=== PATIENT | female | born 1955 | race African-American/Black ===

== ENCOUNTER 2017-04-19 06:42 | Day surgery (SDC) | payer OTHER ==
[2017-04-08 16:50] VITALS: BMI 30.2
[2017-04-19] MEDS ORDERED: LIDOCAINE HCL 1%, 10 MG/ML (20ML VIAL) ONE (07:19)
[2017-04-19] MEDS ORDERED: DESFLURANE GAS 240 ML BOTTLE IH ONE (07:19)
[2017-04-19] MEDS ORDERED: SEVOFLURANE 250 ML BTL ONE (07:19)
[2017-04-19] MEDS ORDERED: LIDOCAINE HCL 2% (20ML MULTI-DOSE VIAL) NR ONE (07:29)
[2017-04-19] MEDS ORDERED: BUPIVACAINE HCL/PF 0.5% (5MG/ML) 10 ML VIAL ONE (07:29)
[2017-04-19] MEDS ORDERED: LIDOCAINE 1%/EPI 1:100000 (20 ML MULTI DOSE VIAL) ONE (07:29)
[2017-04-19] MEDS ORDERED: TRIAMCINOLONE ACET 40MG/1ML VIAL ONE (07:29)
[2017-04-19] MEDS ORDERED: MIDAZOLAM HCL 2 MG/2 ML SINGLE DOSE VIAL ONE (08:04)
[2017-04-19] MEDS ORDERED: PROPOFOL 20 ML ONE ×3 (09:56)
[2017-04-19] MEDS ORDERED: ONDANSETRON 4 MG/2 ML VIAL IVPUSH PRN (11:52)
[2017-04-19] MEDS ORDERED: PROMETHAZINE HCL 25 MG/1 ML VIAL IVPUSH PRN (11:52)
[2017-04-19] MEDS ORDERED: oxyCODONE HCL 5 MG TABLET PO PRN (11:52)
[2017-04-19] MEDS ORDERED: LACTATED RINGERS SOLUTION 1,000 ML IV SCH (12:00)
[2017-04-19 13:10] VITALS: TEMP 98
[2017-04-19 13:27] VITALS: BP 119/79; PULSE 64
--- NOTE | 2017-04-20 09:26 | OP ---
DATE OF OPERATION: 04/19/2017 PREOPERATIVE DIAGNOSIS: Hallux valgus, acquired deformity of metatarsal, dorsal exostosis and ganglionic cyst, hammertoe No. 2, and tailors bunion, all left foot. PROCEDURES: 1. Excision of exostosis, dorsal left foot. 2. Excision of ganglion, dorsal left foot. 3. Lapidus fusion and bunionectomy. 4. Osteotomy of metatarsal head. 5. Hammertoe arthroplasty correction, toe No. 2. 6. Tailors bunionectomy. All left foot. ANESTHESIOLOGIST: Charles Orozco MD ANESTHESIA: MAC SURGEON: Alexandro Tipton MD ASSISTANTS: Cass Nuñez and Jj Flowers PROCEDURE IS FOLLOWS: The patient was prepped and draped in the usual sterile manner under satisfactory local anesthesia and IV sedation and use of an ankle tourniquet. Attention was directed to the left foot, where the dorsal exostosis was noted, and within the relaxed skin tension lines, an incision was made over the area where the noted bump was noted on the dorsal proximal foot. It was carried down to the extensor tendon, carefully preserving neurovascular structures, retracting or ligating and clamping or Bovie with bleeders as needed. A small ganglion was noticed that was excised. Underneath this, there was an exostosis, which was identified, and it was rongeured and then rasped smooth. The closure was performed with 3-0 Vicryl and then 4-0 nylon for the skin using horizontal mattress and simple sutures. This was done after flushing the wound with copious saline. Attention was then directed to the 1st metatarsocuneiform joint, where a linear incision was performed. It was carried down to the level of the joint. The joint was freed up. A fusion was performed, taking a wedge of bone out of the cuneiform and a straight cut out of the metatarsal. The intermetatarsal angle was closed down. Temporary fixation was noted to be satisfactory, and then, fixation was performed with a lag screw from the metatarsal through the 1st and then into the 2nd cuneiform, 4.0 screw, and then, a dorsal plate using 4-0 screws as well. This fixation was noted to be adequate and with stability and in good positioning with intraoperative fluoroscopy. Attention was then directed to the 1st metatarsophalangeal joint, where the remainder of the bunionectomy was performed as well as an osteotomy of the 1st metatarsal head, the long V type. Capital fragment was translocated into appropriate position and fixated with stability with a 3.0 screw cannulated. The toe was noted to still sit in somewhat abduction. A lateral release was performed, and in addition, an extensor hallucis longus tendon lengthening because of the bow-stringing of the tendon. All this was noted to help keep the toe in a better corrected position, and the correction was noted to be satisfactory. Attention was then directed to the 2nd toe, where an arthroplasty PIPJ was performed including excision of the lesion. Skin plasty was also performed, and following this, the toe was closed and noted to sit in the proper position. A tailors bunionectomy was performed also with a linear incision over the 5th metatarsophalangeal joint. The hypertrophic dorsal lateral eminence was excised, it was rasped smooth, and all closure not previously mentioned specifically was closed with capsule 2.0 Vicryl for the 1st metatarsophalangeal joint, 3.0 for the tailors bunion, 3.0 Vicryl for the tendon closure at the PIPJ arthroplasty, and all skin closure was done with 4.0 nylon. The tourniquet was dropped after 2 hours, and the remainder of the procedure was performed without the tourniquet. Following dropping the tourniquet, a normal hyperemic flush did return to all digits of the operative foot. In addition, following the procedures, a postoperative block was utilized with Marcaine and Kenalog in all surgical sites. The patient was given instructions to use crutches, non-weightbearing, or if unable to do that adequately, to only bear weight on the heel. Patient left the operating room in stable condition. VIANNEY KWOK/[id number]
--- NOTE | 2017-04-23 14:06 | PATH ---
Surgical Pathology Report Patient Name: LINDA BOWSER [facility]. Rec. #: [id number] /Age/Gender: 1955 (Age: 61) / F Account: [id number] Location: [facility] AMBULATORY Taken: 04/19/2017 Received: 04/19/2017 Reported: 04/23/2017 Physicians: Alexandro Tipton M.D. Specimen(s) Received A: SOFT TISSUE MASS AND BONE LEFT FOOT B: METATARSAL 1ST BONE LEFT FOOT C: CUNEIFORM MEDIAL LEFT FOOT D: BUNION LEFT FOOT E: 5TH METATARSAL BONE LEFT FOOT F: BONE 2ND TOE LEFT FOOT Clinical History Sherman bunion, hammer toe #2, Pita's bunion, dorsal exostosis, all left foot Final Diagnosis A. BONE AND SOFT TISSUE, LEFT FOOT, EXCISION: BENIGN BLOOD VESSEL WITH MEDIAL CALCIFICATION, FIBROUS TISSUE WITH ADMIXED PERIPHERAL NERVE, AND BONE AND CARTILAGE WITH REACTIVE CHANGES. B. BONE, LEFT FIRST METATARSAL, EXCISION: BENIGN BONE AND ATTACHED ARTICULAR CARTILAGE. C. BONE, CUNEIFORM MEDIAL LEFT FOOT, EXCISION: BENIGN BONE WITH ATTACHED ARTICULAR CARTILAGE D. BONE, LEFT FOOT, BUNIONECTOMY: BENIGN BONE, SYNOVIUM, AND ARTICULAR CARTILAGE. E. BONE, FIFTH METATARSAL LEFT FOOT, EXCISION: BENIGN BONE WITH ATTACHED ARTICULAR CARTILAGE AND SYNOVIUM. FOCAL REACTIVE CHANGES ARE PRESENT. F. BONE, LEFT SECOND TOE, EXCISION: BONE WITH FOCAL REACTIVE CHANGES, AND ATTACHED ARTICULAR CARTILAGE AND SYNOVIUM. Electronically Signed Robel Rosado M.D. Gross Description A. Received in formalin labeled "soft tissue mass and bone left foot," is a 1.[address], irregular, unoriented portion of soft tissue. Also received within the same container is a 0.9 x 0.[address] x [address] bone fragments. The portion of soft tissue is trisected and the specimen is entirely submitted in 2 cassettes as follows: 1-soft tissue; 2-bone fragments, following decalcification. B. Received in formalin labeled "metatarsal first bone left foot," is a 2.5 x 1.8 x 0[address] bone fragments. A support representative portion is submitted in one cassette, following decalcification. C. Received in formalin labeled "cuneiform medial left foot," is a 2.[address] x 1[address], irregular portion of bone. The specimen is partially surfaced by smooth articular cartilage. A support representative section is submitted in one cassette, following decalcification. D. Received in formalin labeled "bunion left foot," are [address], irregular portions of bone ranging from 1.4 x 0.8 x 0.2 cm to 2.3 x 1.5 x 0.2 cm. Wing Commander sections are submitted in one cassette, following decalcification. E. Received in formalin labeled "fifth metatarsal bone left foot," is a 0.8 x 0[address], irregular portion of bone. The specimen is trisected and entirely submitted in one cassette, following decalcification. F. Received in formalin labeled "bone second toe left foot," is a 1.[address], irregular portion of bone. Wing Commander sections are submitted in one cassette, following decalcification. 04/22/2017 [facility]04/22/2017
== END 2017-04-19 13:50 | disposition home or self-care (01) ==
LOC: FASU 06:42
PROVIDERS: ATTEND Podiatrist Foot Surgery
PROC: 0QSP0ZZ Reposition Left Metatarsal, Open Approach (ICD-10-PCS; 2017-04-19)
PROC: 0QSP0ZZ Reposition Left Metatarsal, Open Approach (ICD-10-PCS; principal; 2017-04-19 08:52)
PROC: 0SRQ0JZ Replacement of Left Toe Phalangeal Joint with Synthetic Substitute, Open Approach (ICD-10-PCS; 2017-04-19 08:52)
PROC: 0QBP0ZZ Excision of Left Metatarsal, Open Approach (ICD-10-PCS; 2017-04-19 08:52)
PROC: 0QBP0ZZ Excision of Left Metatarsal, Open Approach (ICD-10-PCS; 2017-04-19 08:52)
DX: M20.12 Hallux valgus (acquired), left foot (principal); M20.42 Other hammer toe(s) (acquired), left foot; M21.622 Bunionette of left foot; M89.9 Disorder of bone, unspecified; M67.472 Ganglion, left ankle and foot; M25.775 Osteophyte, left foot
CPT/HCPCS: 73630-TC-LT; 88304-TC; 88311-TC; 94760; 97116-GP